=== PATIENT | male | born 1975 | race African-American/Black ===

== ENCOUNTER 2016-04-13 09:37 | Emergency (ER) | payer OTHER ==
[~2016-04-13] VITALS: Ht 177.8 cm; Wt 81.8 kg
[2016-04-13 11:15] LABS: HEMATOCRIT 46.3 % (38.0-50.0); MCH 29.4 PG (29.0-34.0); MCHC 36.9 G/DL (30.0-36.0); MCV 79.6 FL (86-99); MEAN PLAT.VOLUME 9.9 uM^3 (9.0-12.4); PLATELET COUNT 165 K/uL (156-360); RBC DIS.WIDTH-CV 12.2 % (11.8-14.6); RBC DIS.WIDTH-SD 34.9 % (39-53); RED BLOOD COUNT 5.82 M/uL (4.00-5.50); WHITE BLOOD COUNT 4.1 K/uL (4.1-10.2)
[2016-04-13 11:30] LABS: CHLORIDE 104 mEq/L (99-109); POTASSIUM 4.4 mEq/L (3.7-5.4); SODIUM 139 mEq/L (136-147)
[2016-04-13 11:31] LABS: GLUCOSE 93 mg/dL (70-99)
[2016-04-13 11:33] LABS: ANION GAP 7 MEQ/L (2-14)
[2016-04-13 11:35] LABS: GFR ESTIMATE (CALCULATED) > 59 mL/min/; TROP-I INTERPRETATION NEGATIVE; TROPONIN-I < 0.01 ng/mL (0.0-0.30)
[2016-04-13 11:36] LABS: UREA NITROGEN (BUN) 15 mg/dL (9-23)
[2016-04-13 13:15] VITALS: BP 136/77
== END 2016-04-13 13:16 | disposition home or self-care (01) ==
LOC: EME 09:37
DX: R00.2 Palpitations (principal); I49.3 Ventricular premature depolarization
CPT/HCPCS: 71020; 80048; 84484; 85027; 93005; 99281; 99285